=== PATIENT | female | born 1985 | race Caucasian/White ===

== ENCOUNTER 2016-09-06 18:22 | Emergency (ER) | payer OTHER ==
[~2016-09-06] VITALS: Ht 165.1 cm; Wt 113.4 kg
--- NOTE | 2016-09-06 20:36 | ED GENERAL ADULT ---
History of Present Illness General Chief Complaint: General Adult Stated Complaint: ABCESS RT BUTT CHEEK Source: patient Exam Limitations: no limitations Vital Signs & Intake/Output Vital Signs & Intake/Output Vital Signs Date Time Temp Pulse Resp B/P B/P Pulse O2 O2 Flow FiO2 Mean Ox Delivery Rate 09/06 2037 97.9 91 18 117/69 97 Room Air 09/06 1854 97.1 96 16 168/84 100 Room Air ED Intake and Output 09/07 0000 09/06 1200 Intake Total 0 Output Total Balance 0 Intake, IV 0 Patient 250 lb Weight Allergies Uncoded Allergies: POLLEN (Severe, URI 03/09/12) SEASONAL ALLERGIES (Severe, URI 03/09/12) Reconcile Medications Clindamycin HCl (Cleocin HCl) 300 MG CAPSULE 1 CAP PO TID ABSCESS Ibuprofen 600 MG TABLET 1 TAB PO TID PRN PAIN/INFLAMMATION with food Triage Note: PT COMPLAINS OF ABCESS TO R BUTTOCKS TIMES A COUPLE OF DAYS Triage Nurses Notes Reviewed? yes Onset: Gradual Duration: day(s): (2) Timing: no prior history Severity: moderate No Modifying Factors: none : No Patient currently breastfeeds: No HPI: Patient is a 31-year-old female presenting to the emergency department with chief complaint of abscess to right buttock region that's been going on for the past 2 days. Denies history of similar symptoms. Painful with palpation. Denies any fevers chills nausea vomiting chest pain or shortness of breath. Denies taking anything to help. No recent travel or sick contacts. (MARY TERRELL) Past History Travel History Traveled to [place] past 21 day No Medical History Any Pertinent Medical History? 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 No (MARY TERRELL) Review of Systems Review of Systems Constitutional: Reports: no symptoms. Comments Review of systems: See HPI, All other systems negative. Constitutional, no chills fever or weight loss HEENT: No visual changes no sore throat no congestion Cardiovascular: No chest pain ,palpitation , orthopnea or ankle swelling Skin, no jaundice Respiratory: No dyspnea cough sputum or hemoptysis GI: No nausea no vomiting : No dysuria No hematuria Muscle skeletal: no back pain, no neck pain, Neurologic: No numbness Psych: No stress anxiety or depression,. Heme/endocrine: No bruising no bleeding no polyuria or polydipsia Immunology: No splenectomy or history of AIDS (MARY TERRELL) Physical Exam Physical Exam General Appearance: well developed/nourished, no apparent distress, alert, awake , comfortable Comments: Well-developed well-nourished person in no acute distress HEENT: Nose is atraumatic. Neck: Arman section Back: Nontender Cardiovascular: Regular rate and rhythms no murmurs rubs or gallops, normal JVP Respiratory: Chest nontender. No respiratory distress.breath sounds clear to auscultation bilaterally Extremity: No edema Neuro: Alert oriented x3 Skin: 3 cm x 3 cm erythematous, slightly raised, minimally fluctuant area noted in the mid right gluteal region. Mildly tender. No discharge. Psych: Mood and affect is normal, memory and judgment is normal. Core Measures ACS in differential dx? No CVA/TIA Diagnosis: No Severe Sepsis Present: No Septic Shock Present: No (MARY TERRELL) Progress Differential Diagnoses I considered the following diagnoses in my evaluation of the patient: S, cellulitis, folliculitis Plan of Care: Orders Procedure Date/time Status TRUNK AREA CULTURE 09/07 2035 Active Microbiology 09/06 2034 TRUNK: Culture & Sensitivity - RECD 09/06 2034 TRUNK: Gram Stain - RECD Initial ED EKG: none (MARY TERRELL) Departure Departure Time of Disposition: 2122 Disposition: HOME OR SELF CARE Condition: Stable Clinical Impression Primary Impression: Abscess Referrals: AGUILA ORTIZ (PCP/Family) Additional Instructions: Return on Friday morning for a wound check. Take antibiotics as prescribed. Take ibuprofen as directed. Warm soaks several times a day 20 minutes at a time. Return sooner for any worsening symptoms fevers or concerns. Departure Forms: Customer Survey General Discharge Information Prescriptions: Current Visit Scripts Clindamycin HCl (Cleocin HCl) 1 CAP PO TID #30 CAP Ibuprofen 1 TAB PO TID PRN PAIN/INFLAMMATION #30 TAB with food (MARY TERRELL) PA/CATERING AND EVENTS MANAGER Co-Sign Statement Statement: ED Attending supervision documentation- [] I saw and evaluated the patient. I have also reviewed all the pertinent lab results and diagnostic results. I agree with the findings and the plan of care as documented in the PA's/CATERING AND EVENTS MANAGER's documentation. [x] I have reviewed the ED Record and agree with the PA's/CATERING AND EVENTS MANAGER's documentation. [] Additions or exceptions (if any) to the PAs/CATERING AND EVENTS MANAGER's note and plan are summarized below: [] (EMERY MOSCOSO,PATRICK Fall) Procedures Incision and Drainage Site: GLUTEUS REGION Blade Size: 11 I & D Procedure: Yes: betadine prep, sterile drapes applied, sterile dressing applied. No: wick placed. Progress: Small mild purulent discharge expelled. Cleaned with Betadine and saline. Patient tolerated procedure well. Area was initially anesthetized with 1% lidocaine, approximately 4 mL with 25-gauge needle. (MARY TERRELL) Critical Care Note Critical Care Note Critical Care Time: non-applicable (MARY TERRELL)
[2016-09-06 20:38] VITALS: BP 117/69
[2016-09-06] MEDS ORDERED: CLEOCIN HCL300 M1 PO (21:25)
[2016-09-06] MEDS ORDERED: IBUPROFEN600 M1 PO (21:25)
== END 2016-09-06 22:09 ==
LOC: ERH 18:22
DX: L02.31 Cutaneous abscess of buttock (principal)
CPT/HCPCS: 87070

== ENCOUNTER 2017-11-10 16:50 | Emergency (ER) | payer OTHER ==
[~2017-11-10] VITALS: Ht 165.1 cm; Wt 122.5 kg
[~2017-11-10 16:50] MED LIST: CLEOCIN HCL300 M1 PO; DELTASONE20 MG PO; HYDROXYZINE HCL50 M1 PO; IBUPROFEN600 M1 PO; PERCOCET 5-3251 EACH PO; ZITHROMAX250 M2 PO
[2017-11-10 17:01] VITALS: BP 141/82
[2017-11-10] MEDS ORDERED: LEVAQUIN750 M1 PO (17:06)
--- NOTE | 2017-11-10 17:09 | ED EAR COMPLAINT ---
History of Present Illness General Chief Complaint: Ear Complaints Stated Complaint: CANT HEAR OUT OF RIGHT EAR, CANT STOP COUGHING Source: patient Exam Limitations: no limitations Vital Signs & Intake/Output Vital Signs & Intake/Output Vital Signs Date Time Temp Pulse Resp B/P B/P Pulse O2 O2 Flow FiO2 Mean Ox Delivery Rate 11/10 1707 97 11/10 1701 96.1 79 18 141/82 98 Room Air Allergies Coded Allergies: albuterol (Severe, ANAPHYLAXIS 12/29/16) Penicillins (Mild, UNKOWN 12/29/16) Sulfa (Sulfonamide Antibiotics) (Mild, UNKNOWN 12/29/16) Uncoded Allergies: POLLEN (Severe, URI 03/09/12) SEASONAL ALLERGIES (Severe, URI 03/09/12) Reconcile Medications Azithromycin (Zithromax) 250 MG TABLET 1 DP PO AD Sinusitis 2 the first day followed by 1 for days 2-5 Hydroxyzine Hydrochloride (Atarax) 50 MG TABLET 1 TAB PO TID ITCHING Levofloxacin (Levaquin) 750 MG TABLET 1 TAB PO DAILY OTITIS MEDIA Oxycodone HCl/Acetaminophen (Percocet 5-325 MG Tablet) 5 MG-325 MG TABLET 1 TAB PO Q8 PRN Pain Prednisone (Deltasone) 20 MG TABLET 1 TAB PO BID RASH Triage Note: PT STATES SHE CAN'T HEAR OUT OF HER RIGHT EAR. PT WAS SEEN AT URGENT CARE LAST WEEK AND GIVEN ABX. PT STATES PAIN CONT. AND SHE STILL CAN'T HEAR AND SHE CAN'T STOP COUGHING Triage Nurses Notes Reviewed? yes Onset: Gradual Duration: constant Timing: recent history Severity: moderate Severity Numbers: 5 : No Patient currently breastfeeds: No HPI: Patient is a 32-year-old female who presents emergency room with a 1 week history of right-sided ear pain decreased hearing sensation and nonproductive cough. Patient is AN EVERY DAY smoker patient states that as an adolescent she had multiple ear tubes placed. Denies any ear discharge denies any fever chills chest pain arm pain jaw pain (Yeyo Potter) Past History Travel History Traveled to [place] past 21 day No Medical History Any Pertinent Medical History? 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 No (Yeyo Potter) Review of Systems Review of Systems Constitutional: Reports: no symptoms. EENTM: Reports: see HPI. Respiratory: Reports: see HPI, cough. Cardiovascular: Reports: no symptoms. GI: Reports: no symptoms. Genitourinary: Reports: no symptoms. Musculoskeletal: Reports: no symptoms. Skin: Reports: no symptoms. Neurological/Psychological: Reports: no symptoms. Hematologic/Endocrine: Reports: no symptoms. Immunologic/Allergic: Reports: no symptoms. All Other Systems: Reviewed and Negative (Yeyo Potter) Physical Exam Physical Exam General Appearance: no apparent distress, alert, comfortable Head: atraumatic Eyes: Bilateral: normal appearance. Ears: Left: canal normal, Tympanic normal. Right: Tympanic dull, Tympanic red. Nose: normal inspection Mouth/Throat: normal mouth inspection, pharynx normal Neck: normal inspection Cardiovascular/Respiratory: no respiratory distress Neurologic/Psych: no motor/sensory deficits, awake, alert Skin: intact, normal color Comments: EAR- No mastoid tenderness (Yeyo Potter) Progress Differential Diagnoses I considered the following diagnoses in my evaluation of the patient: [Otitis media otitis externa sinusitis pharyngitis viral syndrome mastoiditis] Plan of Care: Patient has intact tympanic membranes SHE WILL BE treated for concerns of right otitis media clear lungs auscultation afebrile remarkable oropharynx exam Initial ED EKG: none (Yeyo Potter) Departure Departure Disposition: HOME OR SELF CARE Condition: Stable Clinical Impression Primary Impression: Otitis media Referrals: Zuly MOSCOSO,Che Martinez APRN (PCP/Family) Additional Instructions: As discussed please discontinue smoking. Begin the prescription of Levaquin if no better on follow-up with ENT Dr. Caruso. His symptoms worsen return to emergency room. Prescriptions waiting a [facility] Departure Forms: Customer Survey General Discharge Information Prescriptions: Current Visit Scripts Levofloxacin (Levaquin) 1 TAB PO DAILY #7 TAB (Yeyo Potter) PA/PUBLIC HEALTH INSPECTOR Co-Sign Statement Statement: ED Attending supervision documentation- [] I saw and evaluated the patient. I have also reviewed all the pertinent lab results and diagnostic results. I agree with the findings and the plan of care as documented in the PA's/PUBLIC HEALTH INSPECTOR's documentation. [X] I have reviewed the ED Record and agree with the PA's/PUBLIC HEALTH INSPECTOR's documentation. [] Additions or exceptions (if any) to the PAs/PUBLIC HEALTH INSPECTOR's note and plan are summarized below: [] (Tomas Mcgill DO)
== END 2017-11-10 17:20 ==
LOC: ERH 16:50
DX: H66.91 Otitis media, unspecified, right ear (principal); F17.210 Nicotine dependence, cigarettes, uncomplicated